=== PATIENT | female | born 1980 | race Hispanic/Latino ===

== ENCOUNTER → 2016-10-20 | Outpatient (CLI) | payer OTHER ==
--- NOTE | 2016-10-20 15:40 | Diagnostic Imaging Report ---
PROCEDURE: MR imaging of the brain without contrast. TECHNIQUE: Multiplanar, multisequence MR imaging of the brain was performed without contrast. INDICATION: Headache. Empty sella. FINDINGS: There is no diffusion restriction to suggest an acute infarct or other diffusion abnormality. The brain parenchyma demonstrates normal signal in the pace and white matter except for a minor T2 hyperintense minimal area of increased signal in the white matter within the left frontal region, axial image 16, without associated mass effect or significant edema and contralateral right frontal similar finding, of questionable clinical significance. No demyelinating plaques, mass, or brain edema. The lateral ventricles are normal in size. There is CSF intensity filling the majority of the space within the sella turcica with flattened small pituitary gland noted compatible with empty sella without associated mass seen. No extra-axial fluid collection is identified. The internal auditory canals and inner ear structures appear grossly unremarkable. There are preserved central vascular flow-voids noted. The orbits and paranasal sinuses appear grossly unremarkable. IMPRESSION: There is empty sella appearance with no mass lesion or hydrocephalus noted. This can be a normal variant or can be seen with intracranial hypertension. Correlate clinically. Dictated by: Dictated on workstation # [id number]
== END ==
LOC: RAD 14:25
PROVIDERS: ATTEND Nurse Practitioner Family
DX: E23.6 Other disorders of pituitary gland (principal)
CPT/HCPCS: 70551